=== PATIENT | male | born 1970 ===

== ENCOUNTER 2018-08-09 07:43 | Outpatient (CLI) | payer OTHER | END 2018-08-09 07:44 | disposition home or self-care (01) | LOC: BICMRI 07:43 | PROVIDERS: ATTEND Orthopaedic Surgery | DX: M23.91 Unspecified internal derangement of right knee (principal); S83.521A Sprain of posterior cruciate ligament of right knee, initial encounter; M22.2X1 Patellofemoral disorders, right knee; M25.461 Effusion, right knee ==